=== PATIENT | female | born 1990 | race Two or more races ===

== ENCOUNTER 2025-09-22 01:29 | Emergency (ER) | payer OTHER, SELFPAY ==
[2025-09-22 01:47] VITALS: BP 129/73; PULSE 80; RESP 19; TEMP 37.4; O2SAT 98
[2025-09-22 01:48] VITALS: BMI 27.6
--- NOTE | 2025-09-22 01:53 | XR_ITS ---
Examination: Complete OB ultrasound, less than 14 weeks, transabdominal Date and time of exam: September 22, 2025, 0312 hours INDICATIONS: Vaginal bleeding beginning 1:00 a.m. this morning. Technique: Obstetrical ultrasound images less than 14 weeks performed via transabdominal imaging Findings: Uterus 10.8 cm intrauterine gestational sac 1.93 cm corresponding to 6 weeks 6 days gestational age. No pole, no cardiac activity, no yolk sac Right ovary 5.1 cm arterial flow 18 x 10 x 13 mm cyst Left ovary 2.7 cm arterial flow IMPRESSION: Empty intrauterine gestational sac corresponding to 6 weeks 6 days gestational age No pole, no cardiac activity, no yolk sac Recommend continued short-term follow-up pelvic sonography to exclude embryonic demise
--- NOTE | 2025-09-22 01:53 | PD.EDRME ---
Rapid Medical Screening Exam RME Arrival date/time: 09/22/25 01:29 This is a case of 35-year-old female with no medical history came into the emergency room due to vaginal bleeding and pelvic cramping patient is 4 weeks 3 para 2 Chief Complaint: Vaginal Bleeding Time Seen by Provider: 09/22/25 01:53 Vital signs: Vital Signs Temperature 99.4 F 09/22/25 01:47 Pulse Rate 80 09/22/25 01:47 Respiratory Rate 19 09/22/25 01:47 Blood Pressure 129/73 09/22/25 01:47 Pulse Oximetry (%) 98 09/22/25 01:47 Oxygen Delivery Method Room Air 09/22/25 01:47 Exam: Abdominal exam is benign nonsurgical no guarding no rebound no rigidity no tenderness Clinical Impression: Vaginal bleeding in
[2025-09-22 02:49] LABS: Basophils # (Auto) 0.1 Thou/mm3 (0.0-0.2); Basophils % (Auto) 0 % (0-2.5); Eosinophils # (Auto) 0.1 Thou/mm3 (0.0-0.5); Eosinophils % (Auto) 1 % (0-10); Hematocrit 41.5 % (36.0-46.0); Hemoglobin 14.7 g/dL (12.0-16.0); Immature Granulocytes Auto 0.03 Thou/mm3 (0.00-0.00); Lymphocytes # (Auto) 2.0 Thou/mm3 (1.0-4.8); Lymphocytes % (Auto) 17 % (10-50); Mean Corpuscular HGB Conc 35.4 g/dl (31.0-37.0); Mean Corpuscular Hemoglobin 32.5 pg (25.0-35.0); Mean Corpuscular Volume 92 fL (80-100); Monocytes # (Auto) 0.5 Thou/mm3 (0.0-0.8); Monocytes % (Auto) 4 % (0-12); Neutrophils # (Auto) 9.0 Thou/mm3 (1.8-7.7); Neutrophils % (Auto) 77 % (37-80); Nucleated Red Blood Cell # 0.00 Thou/mm3 (0.00-0.00); Nucleated Red Blood Cell % 0 /100 WBC (0); Platelet Count 227 Thou/mm3 (140-440); RDW Standard Deviation 42.9 fL (36.4-46.3); Red Blood Count 4.52 Miln/mm3 (4.00-5.20); White Blood Count 11.7 Thou/mm3 (3.6-11.0)
[2025-09-22 03:28] LABS: Alanine Aminotransferase 17 U/L (10-49); Albumin, Serum 4.9 gm/dL (3.5-5.0); Albumin/Globulin Ratio 2.1 (1.2-2.2); Alkaline Phosphatase 86 U/L (46-116); Anion Gap 11 (7-16); Aspartate Amino Transferase 16 U/L (0-34); BUN/Creatinine Ratio 14 Ratio (12-20); Bilirubin,Total 0.3 mg/dL (0.3-1.2); Blood Urea Nitrogen 10 mg/dL (9-23); Calcium 10.0 mg/dL (8.3-10.6); Calcium (Corrected) 10.0 mg/dL (8.5-10.1); Carbon Dioxide 23.4 mMol/L (20.0-31.0); Chloride 104 mMol/L (98-107); Creatinine (Component) 0.7 mg/dL (0.6-1.3); Estimated Creatinine Clearance 99.7 mL/min (>60); Globulin 2.3 gm/dL (2.3-3.5); Glucose 109 mg/dL (74-106); Osmolality,Calculated 275 (275-295); Potassium 4.1 mMol/L (3.4-5.1); Sodium 138 mMol/L (136-145); Total Protein 7.2 gm/dL (5.7-8.2); eGFR > 60 See Note
[2025-09-22 04:07] LABS: Collection Type, Urine Voided
[2025-09-22 04:14] LABS: Bilirubin,Urine Negative (Negative); Blood,Urine Negative (Negative); Clarity,Urine Clear (Clear/Hazy); Color,Urine Colorless (Lt Yel-Yel); Glucose, Urine Negative (Negative); Ketones,Urine Negative (Negative); Leukocyte Esterase,Urine Negative (Negative); Nitrite,Urine Negative (Negative); PH,Urine 6.5 (5.0-7.0); Protein,Urine Negative (Neg - Trace); RBC,Urine < 1 /hpf (0-3); Specific Gravity,Urine 1.003 (1.001-1.035); Squamous Epithelial Cell,Urine < 1 /hpf (0-5); Urobilinogen,Urine Negative mg/dL (0.0-1.0); WBC,Urine < 1 /hpf (0-5)
[2025-09-22 04:28] VITALS: BP 121/74; PULSE 76; RESP 17; TEMP 36.8; O2SAT 99
--- NOTE | 2025-09-22 05:04 | PRELIM_ITS ---
Obstetric ultrasound (transabdominal). September 22, 2025 0312 hours Clinical history: vaginal bleeding No prior study is available for comparison. Findings: A small anechoic sac-like structure is noted in the endometrial cavity. The mean sac diameter measures 1.93 cm, corresponding to 6 weeks and 6 days. No pole or yolk sac is seen at this time. The uterus measures 10.8 x 7.5 x 7.4 cm. The right ovary measures 5.1 x 2.2 x 2.8 cm and contains cyst measuring 1.8 x 1 x 1.3 cm. The left ovary measures 2.7 x 1.4 x 2.1 cm and is unremarkable. Both ovaries demonstrate color flow and spectral waveforms on Doppler evaluation. Impression: Small anechoic structure in the endometrial cavity without yolk sac or pole. This may represent an early intrauterine gestational sac, anembryonic (blighted ovum) or a pseudosac with an occult ectopic cannot be entirely excluded. Recommend correlation with quantitative beta hCG and close sonographic follow-up. Report Electronically Signed By: rBuce Eugene 09/22/2025 5:04:06 AM [EST]
[2025-09-22 05:14] VITALS: BP 147/89; PULSE 88; RESP 19; TEMP 37.2; O2SAT 100
--- NOTE | 2025-09-22 05:35 | EDNOTE_ITS ---
ED OB Contraction Preg RMI/HPI General Chief complaint: Vaginal Bleeding Stated complaint: VAGINAL SPOTTING Time Seen by Provider: 09/22/25 01:53 Arrival date/time: 09/22/25 01:29 RME / HPI RME / HPI Narrative: 09/22/25 01:29 This is a case of 35-year-old female with no medical history came into the emergency room due to vaginal bleeding and pelvic cramping patient is 4 weeks 3 para 2 Patient is 35 years old and believes herself to be approximately 4 to 5 weeks . She has had vaginal bleeding for the last 1 day with lower abdominal cramping. No dysuria or hematuria. Patient has 3 para 2. Exam: Abdominal exam is benign nonsurgical no guarding no rebound no rigidity no tenderness Impression: Vaginal bleeding in Related Data Home Medications ?Medication ?Instructions ?Recorded ?Confirmed PNV CMB#95/FERROUS FUMARATE/FA 1 tab PO QDAY #0 tabs 0 06/30/17 10/23/21 ( MULTIVITAMINS TABLET) Previous Rx's ?Medication ?Instructions ?Recorded ibuprofen 800 mg tablet 800 mg PO Q8H PRN pain #60 t abs 10/23/21 ferrous sulfate 325 mg (65 mg 325 mg PO BID #90 tabs 1 12/25/20 iron) tablet,delayed release Allergies Allergy/AdvReac Type Severity Reaction Status Date / Time Sulfa (Sulfonamide Allergy Intermediate RASH Verified 09/22/25 01:29 Antibiotics) ED Exam Narrative Physical exam: Generally patient is alert and oriented x 3, heart regular rate and rhythm, lungs clear to auscultation equal bilaterally, abdomen soft bowel sounds present also nontender, extremities show no edema, neurologic exam shows Eric Coma Scale of 15 without focal motor deficits. Course Quality Measures none Orders Category Date Time Status US OB <= 14 weeks fetus Stat Exams 09/22/25 01:53 Completed ABO/RH Type Stat Lab 09/22/25 02:24 Completed Beta HCG,Quantitative Stat Lab 09/22/25 02:24 Completed CBC Stat Lab 09/22/25 02:24 Completed CMP [Comprehensive Metabolic Panel] Stat Lab 09/22/25 02:24 Completed Urinalysis Stat Lab 09/22/25 04:00 Completed Vital Signs Vital signs: Vital Signs Temperature 99.4 F 09/22/25 01:47 Pulse Rate 80 09/22/25 01:47 Respiratory Rate 19 11/01/25 01:47 Blood Pressure 129/73 09/22/25 01:47 Pulse Oximetry (%) 98 09/22/25 01:47 Oxygen Delivery Method Room Air 09/22/25 01:47 Vaginal Bleeding MDM Narrative MDM Narrative: I interpreted all labs. Rh is positive. Pelvic ultrasound is compatible with a blighted ovum. I explained through an refining still operator what a blighted ovum was. The gestational sac is approximately 7 weeks and age. I explained to the patient that her bleeding most likely will increase until she passes the gestational sac. She may use Tylenol and/or ibuprofen as needed for pain. Follow-up with her doctor. Return to ER as needed or if condition worsens. Patient data External records reviewed:: Other (specify) Clinical information provided by:: none Social determinants that could affect healthcare access:: none Patient has the following chronic illnesses:: None How is presenting disease/condition affected by chronic disease/condition?: no chronic disease Evaluation data The following diagnostics were reviewed and interpreted by me:: other (specify) Lab and/or radiology exams considered but not ordered:: None Interpretation Summary: None Medications / Prescriptions Medications or Prescriptions considered but not ordered:: None Medication administrations:: Number Consultations Consultation(s) initiated? (list below): No Diagnosis Vaginal Bleeding Differential Diagnosis: other Most likely diagnosis given after review of the tests above:: None Admission Indicated Admission indicated?: not indicated Admission Request Was there a request for admission?: No Disposition Plan Disposition Plan: Discharge Discharge Attestation Discharge Attestation: The patient and all family members were given an opportunity to ask questions and understood the discharge instructions. Discharge instructions specifically effects, indications for sooner follow up or return to the emergency department, and the expected course of current diagnosis. Patient condition: Stable Discharge Plan Plan Patient Disposition: HOME (Self Care) Prescriptions/Referrals Prescriptions/Med Rec: No Action PNV CMB#95/FERROUS FUMARATE/FA ( MULTIVITAMINS TABLET) 1 EACH tablet 1 tab PO QDAY Qty: 0 ibuprofen 800 mg tablet 800 mg PO Q8H PRN (Reason: pain) Qty: 60 0RF ferrous sulfate 325 mg (65 mg iron) tablet,delayed release (DR/EC) 325 mg PO BID Qty: 90 0RF Referrals: No Primary/Family,Physician [Primary Care Provider] - In 1 week Problem List Clinical Impression: Blighted ovum Patient/Caregiver Discharge Instructions Education Materials: Understanding Blighted Ovum Additional Instructions: You will continue to bleed for the next several days to 1 week. You may use Tylenol and/or ibuprofen as needed for pain. Follow-up with your doctor as needed. Return to ER as needed or if condition worsens. Print Language: Kyrgyz Stand Alone Forms: Grace Award Info., Patient Portal Info Letter
== END 2025-09-22 05:48 | disposition home or self-care (01) ==
PROVIDERS: Nurse Practitioner Family; Emergency Provider Emergency Medicine
DX: O02.0 Blighted ovum and nonhydatidiform mole (principal); Z3A.01 Less than 8 weeks gestation of pregnancy
CPT/HCPCS: 36415; 76801; 80053; 81001; 84702; 85025; 86900; 86901; 99283

== ENCOUNTER 2025-11-08 15:31 | Emergency (ER) | payer OTHER, SELFPAY ==
[2025-11-08 15:33] VITALS: BMI 29.2
[2025-11-08 15:44] VITALS: BP 124/75; PULSE 104; RESP 16; TEMP 36.7; O2SAT 98
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
== END 2025-11-08 18:43 | disposition home or self-care (01) ==
PROVIDERS: Emergency Provider Family Medicine; PCP Family Medicine
DX: O9A.211 Injury, poisoning and certain other consequences of external causes complicating pregnancy, first trimester (principal); S39.91XA Unspecified injury of abdomen, initial encounter; S39.93XA Unspecified injury of pelvis, initial encounter; V89.2XXA Person injured in unspecified motor-vehicle accident, traffic, initial encounter; Z3A.10 10 weeks gestation of pregnancy
CPT/HCPCS: 76801; 99282